=== PATIENT | female | born 1955 | race Caucasian/White ===

== ENCOUNTER 2019-02-06 11:26 | Emergency (ER) | payer OTHER ==
--- OUTSIDE RECORDS SUMMARY | 2019-02-06 11:38 | XMS REPORT | Continuity of Care Document ---
:1955 External Reference #:[id number] Author Name Saad Nolen Care Team Providers Name Role Phone Brianna Mccarty MD Care Team Information [place] [employer] Unavailable Brianna Mccarty MD Primary Care Physician Unavailable Payers Date Identification Numbers Payment Provider Subscriber Policy Number: [id number] [facility] Nyasia Quintero PayID: [id number] [address] [address] [place] [address] Expires: 2013 Policy Number: [id number] Oliveriogladis Quintero PayID: [id number] [address] [place] [address] Policy Number: [id number] [facility] [place] Medicaid Nyasia Quintero Group Name: 1 1 [address] PayID: [id number] [place] [address] Advance Directives Description No Information Available Problems Description No Information Family History Date Family Member(s) Observation Comments Father due to Liver Cancer () Mother due to Natural Causes () First Daughter Chronic undifferentiated schizophrenia Bipolar disorder Social History Type Date Description Comments Sex Unknown Lives With Son Lives With son is primary caregiver ETOH Use Social Tobacco Use Start: Unknown End: Patient is a former smoker Allergies, Adverse Reactions, Alerts Active Allergies Reaction Severity Comments Date Azithromycin 10/28/2018 Oxycodone 10/28/2018 Latex 10/28/2018 Morphine And Related 11/02/2018 Erythromycin 11/02/2018 Medications Active Medications SIG Qnty Indications Ordering Date Provider Cefaclor 1 by mouth twice a 14caps J20.9 Brianna Mccarty, 01/04/2019 250mg Capsules day with food Jeremi Arteaga as directed for 1units Brianna Mccarty, 12/14/2018 Misc transfers.with Jeremi brakes and seat dx v49.76 Wheelchair as directed 1units M54.16 Brianna Mccarty, 11/28/2018 [facility] [place] Jeremi Multivitamin & Mineral 10 cubic 90units K51.911 Brianna Mccarty, 11/28/2018 centimeters by Jeremi Liquid mouth every day Acyclovir 1 by mouth 4 times 30tabs B02.9 Brianna Mccarty, 11/07/2018 400mg Tablets a day M.DJonathan Tizanidine HCL 1-2 po q 4-6 hours Unknown 2mg prn for muscle Tablets spasm Sleep Aid Unknown 50mg Capsules Oxycodone HCL 1 by mouth every 6 Unknown 10mg hours as needed Tablets for pain Dicyclomine HCL Unknown 10mg Capsules Humira Pen 1 pen every 2 Unknown 40mg/0.8ML weeks PNKT Apriso Unknown 0.375gm Caps ER 24HR Omeprazole 1 by mouth every Unknown 40mg Capsules day DR Galarza Allergy Relief one inhalation Unknown each nostril every 50mcg/Act Suspension day Citalopram 1 by mouth every Unknown Hydrobromide day 10mg Tablets Levocetirizine 1 by mouth every Unknown Dihydrochloride day 5mg Tablets History Medications Ciprofloxacin HCL 1 by mouth 30tabs Brianna Mccarty, 12/14/2018 - 500mg twice a day M.D. 12/14/2018 Tablets Macrodantin 1 by mouth 14caps Brianna Mccarty, 12/14/2018 - 100mg twice a day M.D. 01/04/2019 Capsules Amoxicillin/Clavulanat 1 by mouth 30tabs J20.9 Brianna Mccarty, 11/28/2018 - e Potassium twice a day M.D. 12/14/2018 500-125mg Tablets Famciclovir 1 by mouth 30tabs B02.9 Brianna Mccarty, 11/02/2018 - 500mg Tablets three times a M.D. 11/07/2018 day Alendronate Sodium 1 by mouth Unknown - 35mg weekly 11/02/2018 Tablets Oscal 500/200 D-3 1 by mouth Unknown - twice a day 11/02/2018 [id number] Tablets Ferrous Gluconate 1 by mouth Unknown - 11/02/2018 324(38Fe) mg Tablets Celecoxib 1 tab by mouth Unknown - 100mg Capsules twice a day 11/02/2018 with food Gabapentin 600 mg Unknown - 300mg Capsules 11/28/2018 Immunizations CPT Code Status Date Vaccine Lot # [id number] Given 02/23/2013 [place] [id number] Given 02/13/2013 Tetanus,Diphtheria,Adut/Adol Pertussis Vital Signs Date Vital Result Comment 01/17/2019 8:18am Height 53 inches 4'5" Weight 148.00 lb BMI (Body Mass Index) 37.0 kg/m2 01/04/2019 10:11am BP Systolic 138 mmHg BP Diastolic 84 mmHg Heart Rate 93 /min Body Temperature 99.6 F Height 53 inches 4'5" Weight 148.00 lb BMI (Body Mass Index) 37.0 kg/m2 O2 % BldC Oximetry 97 % 12/14/2018 9:57am BP Systolic 90 mmHg BP Diastolic 68 mmHg Heart Rate 76 /min Body Temperature 95.5 F Height 53 inches 4'5" Weight 149.00 lb BMI (Body Mass Index) 37.3 kg/m2 11/28/2018 2:22pm BP Systolic 118 mmHg BP Diastolic 68 mmHg Heart Rate 73 /min Body Temperature 98.4 F Height 53 inches 4'5" Weight 149.00 lb BMI (Body Mass Index) 37.3 kg/m2 O2 % BldC Oximetry 96 % 11/07/2018 11:49am BP Systolic 112 mmHg BP Diastolic 72 mmHg Heart Rate 66 /min Height 53 inches 4'5" Weight 149.00 lb BMI (Body Mass Index) 37.3 kg/m2 O2 % BldC Oximetry 95 % 11/02/2018 1:22pm BP Systolic 118 mmHg BP Diastolic 74 mmHg Heart Rate 73 /min Height 53 inches 4'5" Weight 149.00 lb BMI (Body Mass Index) 37.3 kg/m2 O2 % BldC Oximetry 98 % Results Test Date Facility Test Result H/L Range Note Laboratory test 01/10/2019 [facility] Troponin-I < 0.015 1, [address] ng/mL [place], [place] [id number] [phone] CBS W/Automated 01/10/2019 [facility] White Blood 7.3 K/uL N 3.1-10.[address] [place] [address] [phone] Red Blood Count 3.87 M/uL Low 3.90-5.40 Hemoglobin 11.6 gm/dL N 11.6-15.8 Hematocrit 34.5 % Low 36.0-46.1 Mean Cell Volume 89.1 fl N 80.9-99.0 Mean Corpuscular HGB 30.0 pg N 25.9-32.7 Mean Corpuscular HGB Conc 33.6 g/dL N 30.8-34.3 Platelet Count 361 K/uL High 155-360 Red Cell Distri Width SD 43.3 fl N 36-47 Red Cell Distri Width %CV 13.3 % N 11.7-14.4 Mean Platelet Volume 10.2 fl N 8.9-12.4 Neut% 36.8 % Low 40.4-72.8 Lymph % 53.8 % High 20.0-42.0 [place] % 6.8 % N 4.3-13.2 Eo% 1.8 % N 0.0-6.6 Bas% 0.7 % N 0.0-1.1 Immature Grans 0.1 % N 0.0-5.0 NRBC % 0.0 /100WBC < 10/ 100 WBC Neut# 2.69 K/uL N 1.8-7.0 Lymph # 3.93 K/uL N 1.0-4.0 [place] # 0.50 K/uL N 0.3-0.9 Eos # 0.13 K/uL N 0.0-0.5 Baso # 0.05 K/uL N 0.0-0.1 Immature Grans Absolute 0.01 K/uL NRBC # 0.00 K/uL Lactic Acid 01/10/2019 [facility] Lactic Acid 1.2 mmol/L N 0.4-1.[address] [place] [address] [phone] Lab Reflex >2.0 for Sepsis? Y Comprehensive 01/10/2019 [facility] Glucose 105 mg/ dL N 74-106 Metabolic Panel [address] [place] [address] [phone] BUN 13 mg/dL N 7-18 Creatinine 0.7 mg/dL N 0.6-1.3 Glom Filtration Rate, Estimate >60 mL/min >60 If >60 mL/min >60 3 BUN/Creat 18.5 ratio Sodium 144 mmol/L N 136-145 Potassium 3.4 mmol/L Low 3.5-5.1 Chloride 109 mmol/L High 98-107 Carbon Dioxide 28 mmol/L N 21-32 Anion Gap 7 mEq/L Low 8-16 Calcium 9.0 mg/dL N 8.5-10.1 Total Protein 7.3 g/dL N 6.4-8.2 Albumin 3.7 g/dL N 3.4-5.0 Globulin 3.6 g/dL N 1.9-4.3 Alb/Glob 1.0 ratio Bilirubin,Total 0.2 mg/dL N 0.2-1.0 Sgot/Ast 24 U/L N 15-37 SGPT/Alt 36 U/L N 12-78 Alkaline Phosphatase 171 U/L High 45-117 Laboratory test 01/10/2019 [facility] Troponin-I < 0.015 [address] ng/[place] [address] [phone] Basic Metabolic 11/21/2018 [facility] Glucose 98 mg/ dL N 74-[address] [place] [address] [phone] BUN 13 mg/dL N 7-18 Creatinine 0.7 mg/dL N 0.6-1.3 Glom Filtration Rate, Estimate >60 mL/min >60 If >60 mL/min >60 5 BUN/Creat 18.5 ratio Sodium 141 mmol/L N 136-145 Potassium 4.0 mmol/L N 3.5-5.1 Chloride 109 mmol/L High 98-107 Carbon Dioxide 24 mmol/L N 21-32 Anion Gap 8 mEq/L N 8-16 Calcium 9.5 mg/dL N 8.5-10.1 Laboratory test 11/21/2018 [facility] Serum Iron 78 g/dL N 50-[address] [place], [place] [id number] [phone] Ferritin 23 ng/mL N 8-252 CBS W/Automated 11/21/2018 [facility] White Blood 5.7 K/uL N 3.1-10.7 [address] Count [place], [place] [id number] [phone] Red Blood Count 4.08 M/uL N 3.90-5.40 Hemoglobin 12.1 gm/dL N 11.6-15.8 Hematocrit 37.9 % N 36.0-46.1 Mean Cell Volume 92.9 fl N 80.9-99.0 Mean Corpuscular HGB 29.7 pg N 25.9-32.7 Mean Corpuscular HGB Conc 31.9 g/dL N 30.8-34.3 Platelet Count 374 K/uL High 155-360 Red Cell Distri Width SD 44.5 fl N 36-47 Red Cell Distri Width %CV 13.4 % N 11.7-14.4 Mean Platelet Volume 10.4 fL N 8.9-12.4 Neut% 36.4 % Low 40.4-72.8 Lymph % 53.7 % High 20.0-42.0 [place] % 6.4 % N 4.3-13.2 Eo% 2.8 % N 0.0-6.6 Bas% 0.7 % N 0.0-1.1 Neut# 2.06 K/uL N 1.8-7.0 Lymph # 3.04 K/uL N 1.0-4.0 [place] # 0.36 K/uL N 0.3-0.9 Eos # 0.16 K/uL N 0.0-0.5 Baso # 0.04 K/uL N 0.0-0.1 Laboratory test 11/21/2018 [facility] C-Reactive < 2.9 mg/L <3.[address] Protein,Quant [place], [place] [id number] [phone] 1 TIGHTNESS IN CHEST 2 0.0 - 0.045 ng/mL: Normal 0.046 - 0.5 ng/mL: Suggestive 0.6 - 1.5 ng/mL: Consistent 3 Note: Persistent reduction for 3 months or more in an eGFR <60 mL/min/1.73 m2 defines CKD. Patients with eGFR values >/=60 mL/min/1.73 m2 may also have CKD if evidence of persistent proteinuria is present. The original MDRD equation for estimated GFR is not valid for patients less than 18 years of age. Additional information may be found at www.kdoqi.org. 4 0.0 - 0.045 ng/mL: Normal 0.046 - 0.5 ng/mL: Suggestive 0.6 - 1.5 ng/mL: Consistent 5 Note: Persistent reduction for 3 months or more in an eGFR <60 mL/min/1.73 m2 defines CKD. Patients with eGFR values >/=60 mL/min/1.73 m2 may also have CKD if evidence of persistent proteinuria is present. The original MDRD equation for estimated GFR is not valid for patients less than 18 years of age. Additional information may be found at www.[email or web address]. 6 [place] AND K51.911 Procedures Date Code Description Status 07/15/2007 84999 Doppler Colow Flow Velocity Completed 07/15/2007 86520 Doppler Cardiac Completed 07/15/2007 32706 ECHO-2DW/Wo M-Mode Completed Encounters Type Date Location Provider Dx Diagnosis Office Visit 01/04/2019 Main Office Brianna Mccarty M.D. J20.9 Acute bronchitis, 10:15a unspecified K51.911 Ulcerative colitis, unspecified with rectal bleeding R26.9 Unspecified abnormalities of gait and mobility Office Visit 12/14/2018 10:30a Main Office Brianna Mccarty J20.9 Acute bronchitis M.D. 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 unspecified K51.911 Ulcerative colitis, unspecified with rectal bleeding M54.16 Radiculopathy, lumbar region F43.21 Adjustment disorder with depressed mood Office Visit 11/07/2018 12:00p Main Office Brianna Mccarty K51.911 Ulcerative colitis, M.D. unspecified with rectal bleeding M54.16 Radiculopathy, lumbar region Plan of Treatment Future Appointment(s):04/03/2019 11:30 am - Brianna Mccarty M.D. at Main Office
== END 2019-02-06 11:36 | disposition left against medical advice (07) ==
LOC: UCCORT 11:26
DX: Z53.21 Procedure and treatment not carried out due to patient leaving prior to being seen by health care provider (principal)